=== PATIENT | female | born 1990 | race American Indian/Alaskan Native ===

== ENCOUNTER 2019-03-31 19:49 | Emergency (ER) | payer MEDICAID ==
--- NOTE | 2019-03-31 20:52 | Event Note ---
ED Screening Note ED Screening Note: pt presents for urinary frequency foul odor no dysuria that began a month no fever pt has an IUD PSHx umbilical hernia no PMHx no allergies to meds This initial assessment/diagnostic orders/clinical plan/treatment(s) is/are subject to change based on patients health status, clinical progression and re- assessment by fellow clinical providers in the ED. Further treatment and workup at subsequent clinical providers discretion. Patient/guardian urged not to elope from the ED as their condition may be serious if not clinically assessed and managed. Initial orders include: UA, urine preg
[2019-03-31 20:56] VITALS: BP 109/79
[2019-03-31] MEDS ORDERED: TYLENOL PO ONE (21:59)
[2019-03-31] MEDS ORDERED: IBUPROFEN PO ONE (21:59)
[2019-03-31 22:36] LABS: HCG Qualitative,Urine Negative (Negative)
[2019-03-31 22:44] LABS: Bacteria,Urine 1+ /HPF (Negative); Bilirubin,Urine NEG (Negative); Blood,Urine NEG (Negative); Color,Urine Yellow (Yellow); Mucus,Urine 2+ /HPF; Protein,Urine <15 mg/dL mg/dL (Negative); Urobilinogen,Urine < 2.0 mg/dL (<2.0)
--- NOTE | 2019-03-31 23:43 | Emergency Department Report ---
ED General Adult HPI - General Chief complaint: Urogenital-Female Stated complaint: FLANK PAIN/HEADACHE Time Seen by Provider: 03/31/19 20:50 Source: patient Mode of arrival: Ambulatory Limitations: No Limitations - History of Present Illness Initial comments: Patient is a 29-year-old -[place] female with no past medical history presents with bradycardia, no acute onset persistent severe Sinus congestion with frontal sinus pressure and headache for the last 2 days. Patient states that she has also had intermittent left lower quadrant pain for the last 1 month with dysuria, urinary frequency and urgency. Patient denies fever, chills, nausea, vomiting, chest pain, shortness of breath, dizziness, vaginal bleeding or vaginal discharge, no back pain, sore throat, change in vision or neck pain. MD Complaint: Nasal and sinus congestion; dry cough, headache, LLQ pain -: Sudden, days(s) (2) Location: chest Radiation: non-radiation Severity scale (0 -10): 3 Quality: aching Consistency: constant Improves with: none Worsens with: none Associated Symptoms: denies other symptoms, cough, headaches. denies: confusion, chest pain, diaphoresis, fever/chills, loss of appetite, malaise, nausea/vomiting, rash, shortness of breath, syncope, weakness Treatments Prior to Arrival: none - Related Data Previous Rx's Medication Instructions Recorded Last Taken Type Amoxicillin [Trimox CAP] 500 mg PO Q8H #30 capsule 03/31/19 Unknown Rx Cetirizine HCl [ZyrTEC 10mg cap] 10 mg PO DAILY #30 capsule 03/31/19 Unknown Rx Fluticasone [Flonase] 1 spray NS QDAY #1 bottle 03/31/19 Unknown Rx Ibuprofen [Motrin] 800 mg PO Q8HR PRN #20 tablet 03/31/19 Unknown Rx Allergies Allergy/AdvReac Type Severity Reaction Status Date / Time No Known Allergies Allergy Unverified 03/31/19 20:06 ED Review of Systems ROS: Stated complaint: FLANK PAIN/HEADACHE Other details as noted in HPI Constitutional: denies: chills, fever Eyes: denies: eye pain, eye discharge, vision change ENT: congestion, other (frontal sinus congestion and pressure). denies: ear pain, throat pain Respiratory: cough. denies: shortness of breath, wheezing Cardiovascular: denies: chest pain, palpitations Endocrine: no symptoms reported Gastrointestinal: denies: abdominal pain, nausea, diarrhea Genitourinary: denies: urgency, dysuria, discharge Musculoskeletal: denies: back pain, joint swelling, arthralgia Skin: denies: rash, lesions Neurological: headache. denies: weakness, paresthesias Psychiatric: denies: anxiety, depression Hematological/Lymphatic: denies: easy bleeding, easy bruising ED Past Medical Hx - Past Medical History Previous Medical History?: Yes Hx Hypertension: No Hx CVA: No Hx Heart Attack/AMI: No Hx Congestive Heart Failure: No Hx Diabetes: No Hx Deep Vein Thrombosis: No Hx Pulmonary Embolism: No Hx GERD: No Hx Liver Disease: No Hx Renal Disease: No Hx of Cancer: No Hx Sickle Cell Disease: No Hx Arthritis: No Hx Headaches / Migraines: No Hx Seizures: No Hx Kidney Stones: No Hx Psychiatric Treatment: No Hx Asthma: No Hx COPD: No Hx Tuberculosis: No Hx Dementia: No Hx HIV: No - Surgical History Past Surgical History?: Yes Hx Coronary Stent: No Hx Open Heart Surgery: No Hx Pacemaker: No Hx Internal Defibrillator: No Hx Cholecystectomy: No Hx Appendectomy: No Hx Breast Surgery: No Additional Surgical History: umbilical hernea repair - Social History Smoking Status: Never Smoker Substance Use Type: None - Medications Home Medications: Home Medications Medication Instructions Recorded Confirmed Last Taken Type Amoxicillin [Trimox CAP] 500 mg PO Q8H #30 capsule 03/31/19 Unknown Rx Cetirizine HCl [ZyrTEC 10mg cap] 10 mg PO DAILY #30 capsule 03/31/19 Unknown Rx Fluticasone [Flonase] 1 spray NS QDAY #1 bottle 03/31/19 Unknown Rx Ibuprofen [Motrin] 800 mg PO Q8HR PRN #20 tablet 03/31/19 Unknown Rx ED Physical Exam - General Limitations: No Limitations General appearance: alert, in no apparent distress - Head Head exam: Present: atraumatic, normocephalic, normal inspection - Eye Eye exam: Present: normal appearance, PERRL, EOMI. Absent: scleral icterus, conjunctival injection, nystagmus - ENT ENT exam: Present: normal exam, normal orophraynx, mucous membranes moist, TM's normal bilaterally, normal external ear exam, other (grossly congested nasal passages) - Neck Neck exam: Present: normal inspection, full ROM - Respiratory Respiratory exam: Present: normal lung sounds bilaterally. Absent: respiratory distress, wheezes, rales, rhonchi, chest wall tenderness, accessory muscle use, decreased breath sounds - Cardiovascular Cardiovascular Exam: Present: regular rate, normal rhythm, normal heart sounds. Absent: systolic murmur, diastolic murmur, rubs, gallop - GI/Abdominal GI/Abdominal exam: Present: soft, normal bowel sounds. Absent: distended, tenderness, hyperactive bowel sounds, organomegaly - Rectal Rectal exam: Present: deferred - Extremities Exam Extremities exam: Present: normal inspection, full ROM, normal capillary refill - Back Exam Back exam: Present: normal inspection, full ROM. Absent: CVA tenderness (L), paraspinal tenderness - Neurological Exam Neurological exam: Present: alert, oriented X3, CN II-XII intact, normal gait, reflexes normal - Psychiatric Psychiatric exam: Present: normal affect, normal mood - Skin Skin exam: Present: warm, dry, intact, normal color. Absent: rash ED Course Vital Signs 03/31/19 20:50 Temperature 97.8 F Pulse Rate 98 H Respiratory 18 Rate Blood Pressure 109/79 Blood Pressure 109/79 [Right] O2 Sat by Pulse 100 Oximetry - Reevaluation(s) Reevaluation #1: 03/31/19 23:47 Patient is alert and oriented 3 and is not in distress. Urinalysis is unremarkable. Patient was treated for pain in the ED and discharged home on medications and advised to follow-up with her primary care physician in 7-10 days for reevaluation. Patient advised to return to the ED immediately if symptoms get worse. ED Medical Decision Making - Medical Decision Making Patient is alert and oriented 3 and is not in distress. Urinalysis is unremarkable. Patient was treated for pain in the ED and discharged home on medications and advised to follow-up with her primary care physician in 7-10 days for reevaluation. Patient advised to return to the ED immediately if symptoms get worse. - Differential Diagnosis acute upper respiratory infection; acute frontal sinusitis, acute UTI Critical care attestation.: If time is entered above; I have spent that time in minutes in the direct care of this critically ill patient, excluding procedure time. ED Disposition Clinical Impression: Acute upper respiratory infection Acute frontal sinusitis Qualifiers: Recurrence: non-recurrent Qualified Code(s): J01.10 - Acute frontal sinusitis, unspecified Disposition: DC-01 TO HOME OR SELFCARE Is pt being admited?: No Does the pt Need Aspirin: No Condition: Stable Instructions: Upper Respiratory Infection (ED), Sinusitis (ED) Additional Instructions: Take medications with food, drink plenty of fluids and follow-up with your primary care physician in 7-10 days for reevaluation. Return to the ED immediately if symptoms get worse. Prescriptions: Fluticasone [Flonase] 1 spray NS QDAY #1 bottle Ibuprofen [Motrin] 800 mg PO Q8HR PRN #20 tablet PRN Reason: Pain , Severe (7-10) Amoxicillin [Trimox CAP] 500 mg PO Q8H #30 capsule Cetirizine HCl [ZyrTEC 10mg cap] 10 mg PO DAILY #30 capsule Referrals: [facility] [Outside] - 3-5 Days Time of Disposition: 23:40 Print Language: WOLOF
== END 2019-03-31 23:43 | disposition home or self-care (01) ==
LOC: ED 19:49
DX: J01.10 Acute frontal sinusitis, unspecified (principal); Z79.1 Long term (current) use of non-steroidal anti-inflammatories (NSAID); Z79.899 Other long term (current) drug therapy; Z98.890 Other specified postprocedural states
CPT/HCPCS: 81001; 81025; 99283

== ENCOUNTER 2021-02-27 18:45 | Emergency (ER) | payer MEDICAID ==
[2021-02-27 20:45] VITALS: BP 106/52
[2021-02-27] MEDS ORDERED: NEOMY 3.5 MG/BACIT 400 UNITS/POLY B 5000 UNITS/GM OINT PACKET TP ONE (21:30)
[2021-02-27] MEDS ORDERED: LIDOCAINE (1%) 10 MG/1 ML VIAL 20 ML MDV INFILTRATI ONE (21:30)
--- NOTE | 2021-02-27 21:36 | Emergency Department Report ---
ED Laceration HPI - HPI Chief Complaint: Laceration/Recheck/Suture Stated Complaint: LEFT THUMB LACERATION Time Seen by Provider: 02/27/21 21:29 Location: Upper Extremity (left thumb hase dorsum. cut on metal can.) Severity: mild Tetanus Status: Up to Date (reports no tetanus needed.) Laceration Symptoms: Yes Pain, No Foreign Body Sensation, No Numbness, No Weakness ED Review of Systems ROS: Stated complaint: LEFT THUMB LACERATION Other details as noted in HPI Comment: All other systems reviewed and negative ED Past Medical Hx - Past Medical History Hx Hypertension: No Hx CVA: No Hx Heart Attack/AMI: No Hx Congestive Heart Failure: No Hx Diabetes: No Hx Deep Vein Thrombosis: No Hx Pulmonary Embolism: No Hx GERD: No Hx Liver Disease: No Hx Renal Disease: No Hx Sickle Cell Disease: No Hx Arthritis: No Hx Headaches / Migraines: No Hx Seizures: No Hx Kidney Stones: No Hx Psychiatric Treatment: No Hx Asthma: No Hx COPD: No Hx Tuberculosis: No Hx Dementia: No Hx HIV: No - Surgical History Hx Coronary Stent: No Hx Open Heart Surgery: No Hx Pacemaker: No Hx Internal Defibrillator: No Hx Cholecystectomy: No Hx Appendectomy: No Hx Breast Surgery: No Additional Surgical History: umbilical hernea repair - Social History Smoking Status: Unknown if ever smoked Substance Use Type: None - Medications Home Medications: Home Medications Medication Instructions Recorded Confirmed Last Taken Type Amoxicillin [Trimox CAP] 500 mg PO Q8H #30 capsule 03/31/19 Unknown Rx Cetirizine HCl [ZyrTEC 10mg cap] 10 mg PO DAILY #30 capsule 03/31/19 Unknown Rx Fluticasone [Flonase] 1 spray NS QDAY #1 bottle 03/31/19 Unknown Rx Ibuprofen [Motrin] 800 mg PO Q8HR PRN #20 tablet 03/31/19 Unknown Rx Chlorhexidine Gluconate [Hibiclens] 10 ml TP BID #240 liquid 02/27/21 Unknown Rx cephALEXin [Keflex] 500 mg PO Q6HR #40 capsule 02/27/21 Unknown Rx Laceration Physical Exam - Exam General: Vital signs noted. No distress. Alert and acting appropriately. Wound Length (cm): 2 Laceration Location: Upper Extremity Full Body Front + Back: 1 - arc laceration to this region. no complications. full rom of finger. Laceration Exam: Yes Normal Distal CMS, No Foreign Body, No Exposed Tendon, Vessel, or Nerve, No Tendon Injury ED Course Vital Signs 02/27/21 20:42 Temperature 97.6 F Pulse Rate 60 Respiratory 18 Rate Blood Pressure 106/52 O2 Sat by Pulse 100 Oximetry - Laceration /Wound Repair Left Finger Wound Location: upper extremity Wound Length (cm): 2 Wound's Depth, Shape: linear Wound Explored: clean Betadine Prep?: Yes Anesthesia: 1% Lidocaine Volume Anesthetic (ccs): 2 Wound Debrided: minimal Wound Repaired With: sutures Suture Size/Type: 4:0 Number of Sutures: 4 Sterile Dressing Applied?: Yes Critical care attestation.: If time is entered above; I have spent that time in minutes in the direct care of this critically ill patient, excluding procedure time. ED Disposition Clinical Impression: Finger laceration Disposition: DC-01 TO HOME OR SELFCARE Is pt being admited?: No Does the pt Need Aspirin: No Condition: Stable Instructions: Laceration Care, Adult, Sutured Wound Care, Sutures, [employer], or Adhesive Wound Closure, [id number] Additional Instructions: Please follow-up to have wound reevaluated and need for possible suture removal in 10 days Prescriptions: Chlorhexidine Gluconate [Hibiclens] 10 ml TP BID #240 liquid cephALEXin [Keflex] 500 mg PO Q6HR #40 capsule Referrals: [facility] [Provider Group] - 3-5 Days
== END 2021-02-27 22:40 | disposition home or self-care (01) ==
LOC: ED 18:45
DX: S61.012A Laceration without foreign body of left thumb without damage to nail, initial encounter (principal); Z79.899 Other long term (current) drug therapy; X58.XXXA Exposure to other specified factors, initial encounter; Y93.89 Activity, other specified; Y92.89 Other specified places as the place of occurrence of the external cause; Y99.8 Other external cause status

== ENCOUNTER 2021-04-16 13:35 | Emergency (ER) | payer MEDICAID ==
[2021-04-16 15:41] VITALS: BP 103/59
[2021-04-16] MEDS ORDERED: TETANUS,DIPH,PERTUSS(ACELL) VACCINE 0.5 ML SYRINGE IM ONE (16:28)
[2021-04-16] MEDS ORDERED: NEOMY 3.5 MG/BACIT 400 UNITS/POLY B 5000 UNITS/GM OINT PACKET TP ONE (16:28)
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
== END 2021-04-16 18:02 | disposition home or self-care (01) ==
LOC: ED 13:35
DX: S61.250A Open bite of right index finger without damage to nail, initial encounter (principal); Z98.890 Other specified postprocedural states; Z79.899 Other long term (current) drug therapy; W50.3XXA Accidental bite by another person, initial encounter; Y93.89 Activity, other specified; Y92.89 Other specified places as the place of occurrence of the external cause; Y99.8 Other external cause status
CPT/HCPCS: 73140; 90471; 90715; 99283; A6250